=== PATIENT | female | born 1980 | race Caucasian/White ===

== ENCOUNTER 2017-10-26 20:08 | Emergency (ER) | payer OTHER ==
[~2017-10-26] VITALS: Ht 165.1 cm; Wt 106.1 kg
[2017-10-26] MEDS ORDERED: MEDROL DOSEPAK4 MG PO ×3 (21:28→21:36)
[2017-10-26] MEDS ORDERED: ZITHROMAX250 MG PO ×3 (21:28→21:36)
[2017-10-26] MEDS ORDERED: PROAIR HFA8.5 GM INH ×3 (21:28→21:36)
== END 2017-10-26 21:40 | disposition home or self-care (01) ==
LOC: ED 20:08
DX: J40 Bronchitis, not specified as acute or chronic (principal); F17.200 Nicotine dependence, unspecified, uncomplicated